=== PATIENT | female | born 1965 | race Asian ===

== ENCOUNTER 2018-01-29 13:50 | Day surgery (SDC) | payer OTHER ==
[2018-01-29] MEDS ORDERED: FENTAnyl 50 MCG/ML VIAL (16:59)
[2018-01-29] MEDS ORDERED: MIDAZOLAM 1 MG/ML 2 ML INJ ×2 (17:00)
== END 2018-01-29 17:17 | disposition home or self-care (01) ==
LOC: GIL 13:50
DX: Z12.11 Encounter for screening for malignant neoplasm of colon (principal); K51.90 Ulcerative colitis, unspecified, without complications; K64.8 Other hemorrhoids; E78.5 Hyperlipidemia, unspecified; E11.9 Type 2 diabetes mellitus without complications; F17.200 Nicotine dependence, unspecified, uncomplicated
CPT/HCPCS: 45380; 88305